=== PATIENT | male | born 1940 | race African-American/Black ===

== ENCOUNTER → 2017-10-09 | Outpatient (CLI) | payer MEDICARE, MEDICAID | END | disposition home or self-care (01) | LOC: NM 08:18 | PROVIDERS: ATTEND Specialist | DX: C61 Malignant neoplasm of prostate (principal); M41.9 Scoliosis, unspecified; M19.049 Primary osteoarthritis, unspecified hand; M19.079 Primary osteoarthritis, unspecified ankle and foot | CPT/HCPCS: 78306; A9503 ==

== ENCOUNTER 2019-06-09 14:58 | Emergency (ER) | payer MEDICARE, OTHER ==
[~2019-06-09] VITALS: Ht 167.6 cm; Wt 67.0 kg
[2019-06-09 22:03] LABS: CHLORIDE 104 mEq/L (98-107)
[2019-06-09 23:03] LABS: CLARITY URINE CLOUDY (CLEAR); COLOR URINE BLOODY (YELLOW); KETONES URINE NEGATIVE (NEGATIVE); LEUKOCYTE ESTERASE URINE NEGATIVE (NEGATIVE); NITRITE URINE NEGATIVE (NEGATIVE); OCCULT BLOOD URINE 3+ (NEGATIVE); PROTEIN URINE 4+ (NEGATIVE); SPECIFIC GRAVITY URINE 1.028 (1.005-1.030); UROBILINOGEN URINE 0.2 E.U./dL (0.2-1.0)
[2019-06-10 02:04] VITALS: BP 124/104
[2019-06-14] MEDS ORDERED: PANT40TA4 PO (04:00)
[2019-06-14] MEDS ORDERED: GLYB5TAB7 PO (04:00)
[2019-06-14] MEDS ORDERED: LINA290C PO (04:00)
[2019-06-14] MEDS ORDERED: LISI-650 PO (04:00)
[2019-06-14] MEDS ORDERED: DEXL60CA3 PO (04:00)
[2019-06-14] MEDS ORDERED: TAMS-11 PO (04:00)
[2019-06-14] MEDS ORDERED: LISI5TAB PO (04:00)
== END 2019-06-10 02:05 | disposition home or self-care (01) ==
LOC: ER 14:58
DX: R31.9 Hematuria, unspecified (principal); N20.0 Calculus of kidney; E11.9 Type 2 diabetes mellitus without complications; K21.9 Gastro-esophageal reflux disease without esophagitis
CPT/HCPCS: 36415; 76770; 80048; 81003; 99284

== ENCOUNTER 2019-07-23 17:16 | Emergency (ER) | payer MEDICARE, OTHER ==
[~2019-07-23] VITALS: Ht 167.6 cm; Wt 66.0 kg
[~2019-07-23 17:16] MED LIST: DEXL60CA3 PO; GLYB5TAB7 PO; LINA290C PO; LISI-650 PO; LISI5TAB PO; PANT40TA4 PO; TAMS-11 PO
[2019-07-23] MEDS ORDERED: SODIUM CHLORIDE 0.9% 1,000 ML IV ONE (22:30)
[2019-07-23 23:07] LABS: HEMATOCRIT. 30.9 % (42.0-52.0); HEMOGLOBIN. 9.9 g/dL (14.0-18.0); MEAN PLATELET VOLUME 8.7 fl (7.4-10.4); PLATELET 238 x1000/uL (130-400); RED BLOOD CELL COUNT 3.68 mill/uL (4.7-6.1); RED CELL DISTRIBUTION WIDTH 14.8 % (11.6-14.6)
[2019-07-23 23:12] LABS: CHLORIDE 107 mEq/L (98-107)
[2019-07-23 23:19] LABS: PLATELET ESTIMATE NORMAL
[2019-07-23 23:38] LABS: CLARITY URINE CLEAR (CLEAR); COLOR URINE YELLOW (YELLOW); KETONES URINE NEGATIVE (NEGATIVE); LEUKOCYTE ESTERASE URINE NEGATIVE (NEGATIVE); NITRITE URINE NEGATIVE (NEGATIVE); OCCULT BLOOD URINE NEGATIVE (NEGATIVE); PROTEIN URINE NEGATIVE (NEGATIVE); SPECIFIC GRAVITY URINE 1.005 (1.005-1.030); UROBILINOGEN URINE 0.2 E.U./dL (0.2-1.0)
[2019-07-24 00:58] VITALS: BP 155/90
== END 2019-07-24 01:00 | disposition home or self-care (01) ==
LOC: ER 17:16
DX: R33.9 Retention of urine, unspecified (principal); K59.00 Constipation, unspecified; R10.9 Unspecified abdominal pain; E11.9 Type 2 diabetes mellitus without complications; Z87.442 Personal history of urinary calculi; Z79.899 Other long term (current) drug therapy
CPT/HCPCS: 36415; 51702; 74176; 80053; 81003; 85025; 87086; 99284; J7030; J7040; A4315

== ENCOUNTER 2019-08-12 05:38 | Emergency (ER) | payer MEDICARE, OTHER ==
[~2019-08-12] VITALS: Ht 167.6 cm; Wt 62.8 kg
[2019-08-12 10:07] VITALS: BP 135/72
== END 2019-08-12 10:15 | disposition home or self-care (01) ==
LOC: ER 06:32
DX: N40.1 Benign prostatic hyperplasia with lower urinary tract symptoms (principal); R33.8 Other retention of urine; E11.9 Type 2 diabetes mellitus without complications; Z87.442 Personal history of urinary calculi
CPT/HCPCS: 51702; 99284

== ENCOUNTER 2019-12-02 02:30 | Emergency (ER) | payer MEDICARE, OTHER ==
[~2019-12-02] VITALS: Ht 167.6 cm; Wt 68.0 kg
[2019-12-02 04:32] VITALS: BP 126/77
== END 2019-12-02 05:05 | disposition home or self-care (01) ==
LOC: ER 03:24
DX: T83.018A Breakdown (mechanical) of other urinary catheter, initial encounter (principal); R33.9 Retention of urine, unspecified; Y73.8 Miscellaneous gastroenterology and urology devices associated with adverse incidents, not elsewhere classified; Y92.098 Other place in other non-institutional residence as the place of occurrence of the external cause; R03.0 Elevated blood-pressure reading, without diagnosis of hypertension; E11.9 Type 2 diabetes mellitus without complications; Z79.899 Other long term (current) drug therapy
CPT/HCPCS: 51702; 99284